=== PATIENT | male | born 1980 | race Caucasian/White ===

== ENCOUNTER 2016-05-16 11:45 | Emergency (ER) | payer MEDICAID ==
[2013-11-08 07:49] VITALS: BMI 28.8
[~2016-05-16 11:45] MED LIST: ABILIFY10 MG PO; CLONAZEPAM2 MG/TAB PO; CYCLOBENZAPRINE10 MG PO; DILANTIN100 MG PO; FLEXERIL5 MG PO; NORCO 10/325 TA1 TA1 PO; PERCOCET 10/3251 TA1 PO; PROVENTIL HFA6.7 GM INH
== END 2016-05-16 14:45 | disposition left against medical advice (07) ==
LOC: D.ER 11:45
DX: R05 Cough (principal)

== ENCOUNTER 2017-05-29 01:54 | Emergency (ER) | payer MEDICAID ==
[2013-11-08 07:49] VITALS: BMI 28.8
== END 2017-05-29 02:30 | disposition home or self-care (01) ==
LOC: D.ER 01:54
DX: J01.90 Acute sinusitis, unspecified (principal); G40.909 Epilepsy, unspecified, not intractable, without status epilepticus; F17.200 Nicotine dependence, unspecified, uncomplicated

== ENCOUNTER 2018-12-14 09:04 | Emergency (ER) | payer MEDICAID ==
[~2018-12-14] VITALS: Ht 175.3 cm; Wt 97.7 kg
[2018-12-14 09:10] VITALS: Ht 175.3 cm; Wt 97.7 kg
[2018-12-14 09:28] LABS: BASOPHILS 0.4 % (0-2); EOSINOPHILS 3.5 % (0-7); HEMATOCRIT 45.6 % (42.0-54.0); IMMATURE GRANULOCYTES 0.7 % (0-5); LYMPHOCYTES 26.2 % (15-50); MCH 31.2 pg (26.0-34.0); MCHC 35.1 g/dL (31.0-37.0); MCV 88.9 fL (80.0-100.0); MEAN PLATELET VOLUME 10.3 fL (7.4-10.4); MONOCYTES 6.6 % (2-11); NEUTROPHILS 62.6 % (40-80); PLATELET COUNT 280 10x3/uL (130-400); RBC 5.13 10x6/uL (4.20-6.10); WBC 12.7 10x3/uL (4.8-10.8)
[2018-12-14 09:43] LABS: ALBUMIN 3.5 g/dL (3.4-5.0); ALKALINE PHOSPHATASE 80 U/L (46-116); ALT (SGPT) 45 U/L (10-68); BILIRUBIN - TOTAL 0.32 mg/dL (0.2-1.3); CALC OSMOLALITY 275 mosm/kg (275-300); CALCIUM 9.2 mg/dL (8.5-10.1); CARBON DIOXIDE 28.1 mmol/L (21.0-32.0); CHLORIDE - SERUM 102 mmol/L (98-107); CREATININE - SERUM 0.8 mg/dL (0.6-1.3); GLUCOSE 109 mg/dL (74-106); POTASSIUM - SERUM 3.8 mmol/L (3.5-5.1); PROTEIN - SERUM 7.7 g/dL (6.4-8.2); SODIUM 138 mmol/L (136-145); UREA NITROGEN 10 mg/dL (7-18); eGFR NON AFRICAN AMERICAN > 90 mL/min (90-120)
[2018-12-14 09:49] LABS: INR 0.93 (0.85-1.17)
[2018-12-14 09:50] LABS: APTT 31.1 SECONDS (22.8-39.4)
[2018-12-14 09:52] LABS: CKMB 1.5 U/L (0.0-3.6); CREATINE KINASE 140 UL (21-232); TROPONIN-I < 0.017 ng/mL (0.000-0.060)
[2018-12-14] MEDS ORDERED: IBUPROFEN800 MG PO (12:50)
[2018-12-14] MEDS ORDERED: ZPAK PO (12:50)
[2018-12-14] MEDS ORDERED: ACETAMINOPHEN500 M1 PO (12:50)
[2018-12-14] MEDS ORDERED: OMNICEF300 MG PO (12:51)
[2018-12-14] MEDS ORDERED: MEDROL DOSE PACK4 MG PO (12:52)
[2018-12-14 12:56] LABS: APPEARANCE CLEAR (CLEAR); BILIRUBIN NEGATIVE (NEGATIVE); COLOR YELLOW (YELLOW); GLUCOSE NEGATIVE (NEGATIVE); KETONE NEGATIVE (NEGATIVE); NITRITE NEGATIVE (NEGATIVE); PROTEIN NEGATIVE (NEGATIVE); UROBILINOGEN NORMAL (NORMAL)
[2018-12-14 14:58] VITALS: BP 119/88
== END 2018-12-14 15:28 | disposition home or self-care (01) ==
LOC: D.ER 09:04
PROVIDERS: Family Medicine
DX: R53.81 Other malaise (principal); R53.83 Other fatigue; J40 Bronchitis, not specified as acute or chronic; R07.9 Chest pain, unspecified; R53.1 Weakness; R06.2 Wheezing